=== PATIENT | female | born 1970 | race Caucasian/White ===

== ENCOUNTER 2017-02-04 09:16 | Emergency (ER) | payer OTHER ==
[2017-02-04] MEDS ORDERED: ONDANSETRON 4 MG/2 ML VIAL IVP STA (10:51)
[2017-02-04] MEDS ORDERED: fentaNYL 100 MCG/2 ML VIAL IVP STA (10:51)
[2017-02-04] MEDS ORDERED: KETOROLAC 60 MG/2 ML VIAL IVP STA (10:51)
[2017-02-04] MEDS ORDERED: SODIUM CHLORIDE 0.9% 1,000 ML IV ONE (10:51)
[2017-02-04] MEDS ORDERED: fentaNYL 100 MCG/2 ML VIAL ONE (11:00)
[2017-02-04] MEDS ORDERED: ONDANSETRON 4 MG/2 ML VIAL ONE (11:01)
[2017-02-04] MEDS ORDERED: KETOROLAC 30 MG/ML VIAL ONE (11:01)
[2017-02-04] MEDS ORDERED: diphenhydrAMINE INJ 50 MG/ML VIAL ONE (11:11)
[2017-02-04] MEDS ORDERED: diphenhydrAMINE INJ 50 MG/ML VIAL IVP STA (11:20)
[2017-02-04] MEDS ORDERED: TAMSULOSIN 0.4 MG CAPSULE PO STA (12:51)
[2017-02-04] MEDS ORDERED: HYDROmorphone 1 MG/ML SYRINGE IVP STA (12:51)
[2017-02-04] MEDS ORDERED: TAMSULOSIN 0.4 MG CAPSULE ONE (13:05)
[2017-02-04] MEDS ORDERED: HYDROmorphone 1 MG/ML SYRINGE ONE (13:05)
== END 2017-02-04 13:50 | disposition home or self-care (01) ==
DX: N13.2 Hydronephrosis with renal and ureteral calculous obstruction (principal); R30.0 Dysuria; F17.200 Nicotine dependence, unspecified, uncomplicated
CPT/HCPCS: 51798; 74176; 80053; 81001; 81025; 83690; 85025; 96374; 96375; 99283; 99284; A9270; J1170

== ENCOUNTER 2019-07-20 07:51 | Emergency (ER) | payer OTHER ==
[2019-07-20 08:27] LABS: BILIRUBIN,URINE NEGATIVE (NEGATIVE); GLUCOSE, URINE (UA) NEGATIVE (NEGATIVE); KETONES,URINE (UA) NEGATIVE (NEGATIVE); LEUKOCYTE ESTERASE, URINE NEGATIVE (NEGATIVE); NITRITE,URINE NEGATIVE (NEGATIVE); OCCULT BLOOD,URINE MODERATE (NEGATIVE); PROTEIN,URINE NEGATIVE (NEGATIVE); UROBILINOGEN,URINE 0.2 (NORMAL) E.U./dL (NORMAL)
[2019-07-20 08:28] LABS: CLARITY,URINE CLEAR (CLEAR)
[2019-07-20 08:36] LABS: BACTERIA,URINE None Seen /HPF (None Seen); SQUAMOUS EPITHELIAL CELL,UR RARE Squamous (<= Few)
[2019-07-20 08:37] LABS: ALBUMIN 4.1 g/dL (3.2-5.5); ALBUMIN/GLOBULIN RATIO 1.1 (1.0-2.2); BASOPHILS # (AUTO) 0.1 10^3/uL (0.0-0.1); BASOPHILS % (AUTO) 1.5 %; BILIRUBIN,TOTAL 0.4 mg/dL (0.2-1.0); CALCIUM 9.2 mg/dL (8.5-10.3); CREATININE 0.9 mg/dL (0.4-1.0); EOSINOPHILS # (AUTO) 0.4 10^3/uL (0.0-0.7); HGB - HEMOGLOBIN 11.5 g/dL (12.0-16.0); LYMPHOCYTES # (AUTO) 2.1 10^3/uL (1.5-3.5); LYMPHOCYTES % (AUTO) 27.8 %; MEAN CORPUSCULAR HEMOGLOBIN 27.1 pg (27.0-31.0); MEAN CORPUSCULAR HGB CONC 30.3 g/dL (32.0-36.0); MEAN CORPUSCULAR VOLUME 89.4 fL (81.0-99.0); MEAN PLATELET VOLUME 10.3 fL (7.9-10.8); MONOCYTES # (AUTO) 0.5 10^3/uL (0.0-1.0); MONOCYTES % (AUTO) 6.9 %; NEUTROPHILS # (AUTO) 4.4 10^3/uL (1.5-6.6); NEUTROPHILS % (AUTO) 58.4 %; PLT - PLATELET COUNT 337 10^3/uL (130-450); RED BLOOD COUNT 4.25 10^6/uL (4.20-5.40); RED CELL DISTRIBUTION WIDTH 13.9 % (12.0-15.0); TOTAL PROTEIN 7.7 g/dL (6.7-8.2); WHITE BLOOD COUNT 7.6 x10^3/uL (4.8-10.8)
[2019-07-20] MEDS ORDERED: HYDROmorphone 1 MG/ML CARPUJECT IVP STA (08:41)
--- NOTE | 2019-07-20 09:00 | ED Physician Documentation ---
PD HPI ABD PAIN - Stated complaint Stated Complaint: BACK PX - Chief complaint Chief Complaint: Abd Pain - History obtained from History obtained from: Patient - History of Present Illness Timing - onset: Yesterday Timing - duration: Days (1) Timing - details: Abrupt onset Severity Comments: moderate Quality: Sharp, Pain, Other Location: Other (Left flank and back radiating to her Left groin) Radiation: , Left flank Improved by: Other (nothing) Worsened by: Other (nothing) Associated symptoms: Other (she does report vaginal irritation). No: Fever, Nausea, Vomiting, Hematemesis, Diarrhea, Constipation, Melena, Hematochezia, Dysuria, Hematuria, Chest pain, Dizzy, Loss of appetite, Vaginal bleeding, Vaginal dc Similar symptoms before: Diagnosis (has a hx of kidney stones) Recently seen: Not recently seen - Treatment prior to arrival Treatment prior to arrival: took 2 naproxen at 4am Review of Systems Ten Systems: 10 systems reviewed and negative Constitutional: denies: Fever Cardiac: denies: Chest pain / pressure GI: reports: Abdominal Pain. 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 - Present Medications Home Medications: Ambulatory Orders Medication Instructions Recorded Confirmed Hydrocodone/Acetaminophen [[place] 1 each PO Q6H PRN #20 tablet 02/04/17 5-325 Tablet] Naproxen [Naprosyn] 500 mg PO BID #15 tablet 02/04/17 Ondansetron HCl [Zofran] 4 mg PO Q6H PRN #20 tablet 02/04/17 Tamsulosin [Flomax] 0.4 mg PO DAILY #5 capsule 02/04/17 Hydrocodone/Acetaminophen 1 - 2 each PO Q6H PRN #14 tablet 07/20/19 [Hydrocodon-Acetaminophen 5-325] Ondansetron Odt [Zofran] 4 mg TL Q6H PRN #10 tablet 07/20/19 - Allergies Allergies/Adverse Reactions: Allergies Allergy/AdvReac Type Severity Reaction Status Date / Time codeine Allergy Rash Verified 07/20/19 08:00 morphine AdvReac Headache Verified 07/20/19 08:00 - Social History Does the pt smoke?: Yes Smoking Status: Current every day smoker Does the pt drink ETOH?: No Does the pt have substance abuse?: No - Immunizations Immunizations are current?: Yes PD ED PE NORMAL - Vitals Vital signs reviewed: Yes - General General: Alert and oriented X 3, No acute distress - HEENT HEENT: Atraumatic, Moist mucous membranes, Pharynx benign - Neck Neck: Supple, no meningeal sign - Cardiac Cardiac: RRR - Respiratory Respiratory: No respiratory distress - Abdomen Abdomen: Soft, Non tender, Non distended - Female Female : Deferred - Rectal Rectal: Deferred - Derm Derm: Normal color, Warm and dry, No rash - Extremities Extremities: No edema - Neuro Neuro: Alert and oriented X 3 Eye Opening: Spontaneous Motor: Obeys Commands Verbal: Oriented GCS Score: 15 - Psych Psych: Normal mood, Normal affect Results - Vitals Vitals: Vital Signs - 24 hr 07/20/19 07/20/19 07/20/19 07:57 10:28 11:25 Temperature 36.4 C L 36 C L Heart Rate 69 60 59 L Respiratory 16 18 20 Rate Blood Pressure 126/75 111/59 L 113/75 O2 Saturation 100 99 100 Oxygen O2 Source Room air - Labs Labs: Laboratory Tests 07/20/19 07/20/19 07/20/19 08:19 08:19 08:19 WBC 7.6 RBC 4.25 Hgb 11.5 L Hct 38.0 MCV 89.4 MCH 27.1 MCHC 30.3 L RDW 13.9 Plt Count 337 MPV 10.3 Neut # (Auto) 4.4 Lymph # (Auto) 2.1 Towns # (Auto) 0.5 Eos # (Auto) 0.4 Baso # (Auto) 0.1 Absolute Nucleated RBC 0.00 Nucleated RBC % 0.0 Sodium 141 Potassium 3.9 Chloride 106 Carbon Dioxide 27 Anion Gap 8.0 BUN 14 Creatinine 0.9 Estimated GFR (MDRD) 67 L Glucose 111 H Calcium 9.2 Total Bilirubin 0.4 AST 20 ALT 27 Alkaline Phosphatase 53 Total Protein 7.7 Albumin 4.1 Globulin 3.6 Albumin/Globulin Ratio 1.1 Lipase 29 Urine Color YELLOW Urine Clarity CLEAR Urine pH 7.0 Ur Specific [place] 1.010 Urine Protein NEGATIVE Urine Glucose (UA) NEGATIVE Urine Ketones NEGATIVE Urine Occult Blood MODERATE H Urine Nitrite NEGATIVE Urine Bilirubin NEGATIVE Urine Urobilinogen 0.2 (NORMAL) Ur Leukocyte Esterase NEGATIVE Urine RBC 6-10 H Urine WBC 0-3 Ur Squamous Epith Cells RARE Squamous Urine Bacteria None Seen Ur Microscopic Review INDICATED Urine Culture Comments NOT INDICATED Urine HCG, Qual 07/20/19 08:20 WBC RBC Hgb Hct MCV MCH MCHC RDW Plt Count MPV Neut # (Auto) Lymph # (Auto) Towns # (Auto) Eos # (Auto) Baso # (Auto) Absolute Nucleated RBC Nucleated RBC % Sodium Potassium Chloride Carbon Dioxide Anion Gap BUN Creatinine Estimated GFR (MDRD) Glucose Calcium Total Bilirubin AST ALT Alkaline Phosphatase Total Protein Albumin Globulin Albumin/Globulin Ratio Lipase Urine Color Urine Clarity Urine pH Ur Specific [place] 1.010 Urine Protein Urine Glucose (UA) Urine Ketones Urine Occult Blood Urine Nitrite Urine Bilirubin Urine Urobilinogen Ur Leukocyte Esterase Urine RBC Urine WBC Ur Squamous Epith Cells Urine Bacteria Ur Microscopic Review Urine Culture Comments Urine HCG, Qual NEGATIVE PD MEDICAL DECISION MAKING - ED course Complexity details: reviewed results, re-evaluated patient, considered differential, d/w patient, d/w family ED course: ddx - UTI, pyelonephritis, kidney stone, AAA 49 y/o F with L flank pain, radiating to groin, stable vitals, blood in urine, most likely a kidney stone but borderline Aorta size on bedside US though this is limited study based on body habitus and lack of an abdominal probe thus obtained a CT. UA is not infected CT confirms a 3mm nonobstructing kidney stone and aorta is of normal size. Thus will continue supportive care with analgesics, antiemetics and outpt f/u Given return precautions if worsening symptoms or new concerning symptoms such as fever. Departure - Departure Disposition: 01 Home, Self Care Clinical Impression: Kidney stone on left side Condition: Stable Instructions: Kidney Stones Follow-Up: your, doctor [Other] - Within 1 week (recheck your symptoms ) Prescriptions: Hydrocodone/Acetaminophen [Hydrocodon-Acetaminophen 5-325] 1 - 2 each PO Q6H PRN #14 tablet PRN Reason: pain Ondansetron Odt [Zofran] 4 mg TL Q6H PRN #10 tablet PRN Reason: Nausea / Vomiting Comments: You have a 3 mm kidney stone in your Left distal ureter. This should pass on its own. If you have fever or severe worsening pain not improving with NSAIDs or vicodin return to the ED. Take zofran as needed for nausea. Discharge Date/Time: 07/20/19 11:32
[2019-07-20] MEDS ORDERED: IOVERSOL 320 100 ML VIAL IVP ONE ×2 (09:41→09:59)
[2019-07-20 09:42] LABS: HCG UR QUAL NEGATIVE
--- NOTE | 2019-07-20 11:01 | CT Report ---
Reason: L flank pain, 4cm aorta on US, AAA vs stone Procedure Date: 07/20/2019 Accession Number: [id number] / [id number] Procedure: CT - Abdomen/Pelvis W CPT Code: FULL RESULT: EXAM: CT ABDOMEN AND PELVIS EXAM DATE: 07/20/2019 09:58 AM. CLINICAL HISTORY: L flank pain, 4cm aorta on US, AAA vs stone. COMPARISONS: KUB 02/04/2017 11:16 AM. TECHNIQUE: Routine helical CT imaging was performed through the abdomen and pelvis. IV contrast: 90 cc Optiray 320. Enteric contrast: No. Reconstructions: Coronal and sagittal. In accordance with CT protocol optimization, one or more of the following dose reduction techniques were utilized for this exam: automated exposure control, adjustment of mA and/or KV based on patient size, or use of iterative reconstructive technique. FINDINGS: Lung Bases: Unremarkable. Liver: Normal. No masses. Gallbladder/Bile Ducts: The gallbladder is surgically absent. No biliary dilatation. Spleen: Normal. Pancreas: Normal. Adrenal Glands: Normal. Kidneys: Normal. No masses or hydronephrosis. No renal collecting system calculi identified. Peritoneal Cavity/Bowel: Normal. No free fluid, free air or adenopathy. No masses or acute inflammatory process. No dilated loops of bowel or abnormal colonic stool burden. The appendix is not visualized, but there is no inflammatory change or fluid adjacent to the cecum to suggest acute appendicitis. Pelvic Organs: There is a 3 mm calculus in the expected location of the distal left ureter (series 3 image 79, and series 5 image 30). No ureteral dilatation. The bladder is decompressed. No bladder calculi identified. There are several small phleboliths in the pelvis. There is a left ovarian cyst measuring 2.0 x 1.7 cm (series 3 image 73). The other visualized pelvic organs are within normal limits. Vasculature: No aneurysms or other significant abnormality. The abdominal aorta diameter measures up to 2.0 cm in the upper abdomen and 1.5 cm in the infrarenal abdominal aorta. Bones: No significant abnormality. Other: None. IMPRESSION: 1. There is a 3 mm calculus in the expected location of the distal left ureter. However, there is no left-sided hydroureter or hydronephrosis. 2. No right-sided hydronephrosis, hydroureter, or renal collecting system calculi identified. 3. No abdominal aortic aneurysm. 4. The gallbladder is surgically absent. RADIA
[2019-07-20 11:26] VITALS: BP 113/75
== END 2019-07-20 11:32 | disposition home or self-care (01) ==
LOC: ED 07:51
DX: N20.1 Calculus of ureter (principal); Z87.442 Personal history of urinary calculi; F17.200 Nicotine dependence, unspecified, uncomplicated
CPT/HCPCS: 36415; 74177; 80053; 81001; 81025; 83690; 85025; 96374; 99284; J1170; Q9967; 81003; 87086

== ENCOUNTER 2019-07-21 10:11 | Emergency (ER) | payer OTHER ==
[2019-07-21 10:18] VITALS: BP 138/82
== END 2019-07-21 10:50 | disposition left against medical advice (07) ==
LOC: ED 10:11
DX: Z53.21 Procedure and treatment not carried out due to patient leaving prior to being seen by health care provider (principal)

== ENCOUNTER 2020-03-08 14:22 | Outpatient (CLI) | payer OTHER ==
--- NOTE | 2020-03-08 16:52 | Ultrasound Report ---
Reason: KIDNEY STONES W/URINARY RETENTION AND KIDNEY INFEC Procedure Date: 03/08/2020 Accession Number: [id number] / [id number] Procedure: US - Retroperitoneal CPT Code: Final Report FULL RESULT: PROCEDURE: Retroperitoneal INDICATIONS: KIDNEY STONES W/URINARY RETENTION AND KIDNEY INFEC TECHNIQUE: Real-time scanning was performed of the retroperitoneal organs, with image documentation. COMPARISON: CT abdomen pelvis 07/20/2019, Ultrasound Abdomen Limited 08/17/2015. FINDINGS: Kidneys: Kidneys are normal in size. Right kidney measures 12.1 cm long; left kidney measures 11.5 cm long. Right renal cortical thickness is 1.1 cm; left renal cortical thickness is 1.0 cm. No solid masses or nephrolithiasis. Bilateral pelvic caliectasis is present. Hypoechoic focus is noted within the right kidney measuring 12 x 11 x 10 mm in the upper pole. Pancreas: Visualized portions of the pancreas are sonographically normal. Aorta: Visualized aorta is normal in caliber at 3 cm or less. Iliac arteries: Proximal common iliac arteries are normal in caliber at 2.5 cm or less. IVC: Intrahepatic inferior vena cava is patent. Miscellaneous: No free abdominal fluid. Bladder demonstrates a prevoid volume of 229 cc. Post void residual 21 cc. Bilateral ureteral jets are identified. IMPRESSION: 1. No renal or ureteral calculi are identified. 2. Minimal pelvocaliectasis is noted bilaterally. Reviewed by: Niyah Barajas MD on 03/08/2020 4:47 PM PDT Approved by: Niyah Barajas MD on 03/08/2020 4:47 PM PDT Station ID: [id number]
== END 2020-03-08 14:23 | disposition home or self-care (01) ==
LOC: DI 14:22
PROVIDERS: ATTEND Physician Assistant
DX: R10.9 Unspecified abdominal pain (principal); N13.30 Unspecified hydronephrosis; Z87.442 Personal history of urinary calculi
CPT/HCPCS: 76770

== ENCOUNTER 2022-01-31 08:10 | Emergency (ER) | payer OTHER ==
--- NOTE | 2022-01-31 08:18 | ED Physician Documentation ---
PD HPI ABD PAIN - Stated complaint Stated Complaint: RT SIDE PX - History obtained from History obtained from: Patient - History of Present Illness Timing - onset: How many days ago (few) Timing - duration: Days (few) Timing - details: Gradual onset (was mild for couple days, and then increased to 7/10 last night/today.), Still present Quality: Cramping, Aching, Pain Location: RLQ Radiation: Right flank Improved by: No: Eating, Laying still, Position Worsened by: No: Eating, Moving, Breathing, Palpation Associated symptoms: Nausea. No: Fever, Vomiting, Diarrhea, Constipation, Dysuria, Hematuria, Vaginal bleeding, Vaginal dc Similar symptoms before: Diagnosis (feels similar to couple prior kidney stones in ureters several years ago.) Recently seen: Not recently seen Review of Systems Constitutional: denies: Fever, Chills Nose: denies: Rhinorrhea / runny nose, Congestion Throat: denies: Sore throat Respiratory: denies: Cough GI: reports: Abdominal Pain, Nausea. denies: Vomiting, Constipation, Diarrhea : denies: Dysuria, Frequency, Discharge Skin: denies: Rash Neurologic: reports: Generalized weakness. 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 - Present Medications Home Medications: Ambulatory Orders Medication Instructions Recorded Confirmed Escitalopram Oxalate [Lexapro] 20 mg PO DAILY 01/31/22 01/31/22 HYDROcod/ACETAM 5/325 [[place] 5/325] 1 ea PO Q6H PRN #14 tablet 01/31/22 Naproxen 250 mg PO TID 7 Days #20 tablet 01/31/22 Promethazine [Phenergan] 25 mg PO Q6H PRN #15 tab 01/31/22 - Allergies Allergies/Adverse Reactions: Allergies Allergy/AdvReac Type Severity Reaction Status Date / Time codeine Allergy Rash Verified 01/31/22 08:19 ketorolac [From Toradol] Allergy Rash Verified 01/31/22 08:20 morphine AdvReac Headache Verified 01/31/22 08:19 ondansetron AdvReac Emesis Verified 01/31/22 08:20 - Social History Does the pt smoke?: Yes Smoking Status: Current every day smoker Does the pt drink ETOH?: No Does the pt have substance abuse?: No - Immunizations Immunizations are current?: Yes PD ED PE NORMAL - Vitals Vital signs reviewed: Yes - General General: Alert and oriented X 3, Well developed/nourished, Other (appears in pain due to RLQ?flank pain. ) - Neck Neck: Supple, no meningeal sign, No adenopathy - Cardiac Cardiac: RRR, No murmur - Respiratory Respiratory: Clear bilaterally - Abdomen Abdomen: Normal bowel sounds, Soft, Non distended, No organomegaly, Other (some tender RLQ but no guarding nor percussion tenderness. No skin sores/rash/skin tenderness. ) - Female Female : Deferred - Rectal Rectal: Deferred - Back Back: Other (right CVA tender to percussion mildly) - Derm Derm: Normal color, Warm and dry, No rash - Extremities Extremities: Normal ROM s pain, No edema, No calf tenderness / cord - Neuro Neuro: Alert and oriented X 3, No motor deficit, Normal speech Results - Vitals Vitals: Vital Signs - 24 hr 01/31/22 01/31/22 08:15 10:23 Temperature 36.8 C Heart Rate 80 59 L Respiratory 19 18 Rate Blood Pressure 135/109 H 115/43 L O2 Saturation 97 98 Oxygen O2 Source Room air - Labs Labs: Laboratory Tests 01/31/22 01/31/22 08:35 09:00 Sodium 138 Potassium 4.0 Chloride 103 Carbon Dioxide 25 Anion Gap 10.0 BUN 17 Creatinine 0.9 Estimated GFR (MDRD) 66 L Glucose 104 H Calcium 9.1 Total Bilirubin 0.5 AST 26 ALT 37 Alkaline Phosphatase 62 Total Protein 7.3 Albumin 4.1 Globulin 3.2 Albumin/Globulin Ratio 1.3 Lipase 35 Urine Color YELLOW Urine Clarity CLEAR Urine pH 7.0 Ur Specific [place] 1.020 Urine Protein NEGATIVE Urine Glucose (UA) NEGATIVE Urine Ketones TRACE Urine Occult Blood TRACE-INTA Urine Nitrite NEGATIVE Urine Bilirubin NEGATIVE Urine Urobilinogen 0.2 (NORMAL) Ur Leukocyte Esterase NEGATIVE Ur Microscopic Review NOT INDICATED Urine Culture Comments NOT INDICATED - Rads (name of study) KUB CT Radiology: Prelim report reviewed (no hydronephrosis. No ureteral stones. Normal appendix. No acute process. ), EMP read contemporaneously (no hydronephrosis. it appears to me a 4 mm stone right distal ureter almost to the bladder. ), See rad report PD MEDICAL DECISION MAKING - ED course Complexity details: reviewed results (no clear diagnosis. I thought a distal ureteral stone on CT, but Radiology report did not feel ureteral stone. No other explanation on pain at this time. ), considered differential, d/w patient Departure - Departure Disposition: 01 Home, Self Care Clinical Impression: Right sided abdominal pain, Renal colic Condition: Stable Record reviewed to determine appropriate education?: Yes Instructions: ED Stone Renal W Colic Prescriptions: Naproxen 250 mg PO TID 7 Days #20 tablet HYDROcod/ACETAM 5/325 [[place] 5/325] 1 ea PO Q6H PRN #14 tablet PRN Reason: Pain Promethazine [Phenergan] 25 mg PO Q6H PRN #15 tab PRN Reason: Nausea / Vomiting Comments: I believe there may be a small stone at the end of the ureter almost to the bladder on your CT scan. The radiology report did not feel that that was a stone. However no other abnormality noted on your scan or test. We can treat this with anti-inflammatories of naproxen 3 times daily with food. To that add Tylenol every 4-6 hours if needed for pain. Additionally could add hydrocodone every 4-6 hours if needed and Phenergan for nausea. The Phenergan would also act as a bit of an antihistamine to help with any side effect from the pain medicines. Recheck if not improved over the next several days. Return if worsening or other symptoms develop. [facility] [place]. I am prescribing a short course of narcotic pain medication for you. These are potentially dangerous and addictive medications that should be used carefully. These medications may constipate you. Take an [id number]-res-[id number] stool softener such as docusate twice daily with plenty of water while taking these medica tions. If you go 24 hours without a bowel movement, take [id number] MiraLAX, per package instructions. Do not drink or drive while taking these medications. If you received narcotic or sedating medications while in the emergency department do not drive for 24 hours. Store this medication in a safe, secure place and out of reach of children. It is a violation of federal law to give or sell this medication to another person or to use in a manner other than prescribed. The ED will not refill narcotic prescriptions, including prescriptions lost or stolen. You can dispose of unwanted medications at the Technology Director's office or at several pharmacies such as [facility]. Discharge Date/Time: 01/31/22 11:01
[2022-01-31] MEDS ORDERED: fentaNYL 100 MCG/2 ML VIAL IVP STA (08:36)
[2022-01-31] MEDS ORDERED: DROPERIDOL 5 MG/2 ML VIAL IVP STA (08:36)
[2022-01-31] MEDS ORDERED: LIDOCAINE-MPF 2% 0 ML in SODIUM CHLORIDE 0.9% 50 ML IV STA (08:36)
[2022-01-31] MEDS ORDERED: SODIUM CHLORIDE 0.9% 1,000 ML IV STA (08:36)
[2022-01-31] MEDS ORDERED: LIDOCAINE-MPF 2% 8 ML in SODIUM CHLORIDE 0.9% 50 ML IV STA (08:38)
[2022-01-31 08:45] LABS: BILIRUBIN,URINE NEGATIVE (NEGATIVE); GLUCOSE, URINE (UA) NEGATIVE (NEGATIVE); KETONES,URINE (UA) TRACE mg/dL (NEGATIVE); LEUKOCYTE ESTERASE, URINE NEGATIVE (NEGATIVE); NITRITE,URINE NEGATIVE (NEGATIVE); OCCULT BLOOD,URINE TRACE-INTA (NEGATIVE); PROTEIN,URINE NEGATIVE (NEGATIVE); UROBILINOGEN,URINE 0.2 (NORMAL) E.U./dL (NORMAL)
[2022-01-31 08:47] LABS: CLARITY,URINE CLEAR (CLEAR)
[2022-01-31 09:18] LABS: ALBUMIN 4.1 g/dL (3.2-5.5); ALBUMIN/GLOBULIN RATIO 1.3 (1.0-2.2); BILIRUBIN,TOTAL 0.5 mg/dL (0.2-1.0); CALCIUM 9.1 mg/dL (8.5-10.3); CREATININE 0.9 mg/dL (0.4-1.0); TOTAL PROTEIN 7.3 g/dL (6.7-8.2)
--- NOTE | 2022-01-31 10:02 | CT Report ---
PROCEDURE: Abdomen/Pelvis WO INDICATIONS: right flank/abd pain TECHNIQUE: Noncontrast 5 mm thick sections acquired from the diaphragms to the symphysis. 5 mm coronal and sagi ttal reformats were then performed. For radiation dose reduction, the following was used: automated exposure control, adjustment of mA and/or kV according to patient size. COMPARISON: None. FINDINGS: Image quality: Excellent. ABDOMEN: Lung bases: Lung bases are clear. Heart size is normal. Urinary tract: Punctate nonobstructing left renal calculus measuring 1 mm (series 3 image 27). No add itional urinary tract calculus. Normal unenhanced CT appearance of the kidneys and urinary bladder. Other solid organs: Cholecystectomy. Normal unenhanced CT appearance of the liver, spleen, pancreas, and adrenal glands. Peritoneum and bowel: No abnormally dilated or thickened loops of bowel. No pericolonic or mesenteric inflammatory changes. Sigmoid diverticulosis. Nodes and vessels: No threshold enlarged retroperitoneal or intra-abdominal lymph node. Miscellaneous: No ventral hernias. PELVIS: Genitourinary: Unremarkable enhanced appearance of the uterus and ovaries. Miscellaneous: No surgical unremarkable inguinal lymph node. Bones: No suspicious bony lesions. No vertebral body compression fractures. IMPRESSION: Nonobstructing 1 mm left renal calculus. No findings of hydroureteronephrosis. Reviewed by: David Salgado MD on 01/31/2022 10:00 AM PDT Approved by: David Salgado MD on 01/31/2022 10:00 AM PDT Station ID: [id number]
[2022-01-31 10:29] VITALS: BP 115/43
== END 2022-01-31 11:01 | disposition home or self-care (01) ==
LOC: ED 08:10
DX: N23 Unspecified renal colic (principal); F17.200 Nicotine dependence, unspecified, uncomplicated
CPT/HCPCS: 36415; 74176; 80053; 81003; 83690; 96361; 96374; 96375; 99282; 99284; J7040; 81001; 87086

== ENCOUNTER 2023-02-08 12:39 | Outpatient (CLI) | payer OTHER ==
--- NOTE | 2023-02-09 10:22 | XRAY Report ---
PROCEDURE: Thoracic Spine 2 View INDICATIONS: CHRONIC THORACIC BACK PAIN TECHNIQUE: 2 views of the thoracic spine were acquired. COMPARISON: None. FINDINGS: Bones: No fractures or dislocations. No suspicious bony lesions. Mild degenerative disc disease sca ttered in thoracic spine. 12 pairs of ribs are noted, and appear intact where visualized. Soft tissues: No paravertebral stripe thickening. IMPRESSION: Mild degenerative disc disease. Reviewed by: Gem Finnegan MD on 02/09/2023 10:21 AM PDT Approved by: Gem Finnegan MD on 02/09/2023 10:21 AM PDT Station ID: [id number]
== END 2023-02-08 12:40 | disposition home or self-care (01) ==
LOC: DI 12:39
PROVIDERS: ATTEND Physician Assistant
DX: M51.34 Other intervertebral disc degeneration, thoracic region (principal)

== ENCOUNTER 2023-08-29 10:18 | Outpatient (CLI) | payer OTHER ==
[2023-08-29 10:46] LABS: ALBUMIN 4.5 g/dL (3.2-5.5); CHOLESTEROL 237 mg/dL; HDL CHOLESTEROL 47 mg/dL; LDL CHOLESTEROL,CALCULATED 143 mg/dL; TRIGLYCERIDES 235 mg/dL (48-352); VLDL CHOLESTEROL 47 mg/dL
[2023-08-29 10:57] LABS: ALBUMIN/GLOBULIN RATIO 1.7 (1.0-2.2); ALKALINE PHOSPHATASE 75 IU/L (42-121); ALT ALANINE AMINOTRANSFERASE 47 IU/L (10-60); AST ASPARTATE AMINOTRANSFERASE 29 IU/L (10-42); BILIRUBIN,TOTAL 0.4 mg/dL (0.2-1.0); BUN - BLOOD UREA NITROGEN 16 mg/dL (6-20); CALCIUM 9.8 mg/dL (8.5-10.3); CARBON DIOXIDE - CO2 26 mmol/L (21-32); CHLORIDE 102 mmol/L (101-111); CREATININE 0.8 mg/dL (0.6-1.3); GFR - MDRD 75 (>89); GLUCOSE 138 mg/dL (74-104); POTASSIUM 4.4 mmol/L (3.5-4.5); SODIUM 136 mmol/L (135-145); TOTAL PROTEIN 7.2 g/dL (6.4-8.9)
== END 2023-08-29 10:19 | disposition home or self-care (01) ==
LOC: LAB 10:18
PROVIDERS: ATTEND Physician Assistant
DX: E78.5 Hyperlipidemia, unspecified (principal)
CPT/HCPCS: 36415; 80053; 80061; 83721

== ENCOUNTER 2023-10-02 06:47 | Outpatient (CLI) | payer OTHER ==
--- NOTE | 2023-10-02 14:27 | Ultrasound Report ---
PROCEDURE: Pelvic w/Transvaginal INDICATIONS: POST MENOPAUSAL BLEEDING TECHNIQUE: Real-time scanning was performed of the pelvic organs, with image documentation. Additional endovagi nal scanning was necessary due to incomplete visualization of the adnexal and endometrial structures by transabdominal scanning. COMPARISON: CT 07/20/2019 FINDINGS: Uterus: 6.2 x 3.8 x 5.4 cm. Retroflexed. Heterogeneous echotexture. Endometrium measures 2 to 3 mm, w ithin normal limits. Ovaries:Nonenlarged. Other: In the urinary bladder, there is an echogenic focus versus soft tissue mass measuring 1.7 x 1. 3 cm. IMPRESSION: Nonthickened endometrium. Incidentally noted possible mass versus echogenic focus in the urinary bladder. If this is soft tissu e, it is suspicious for malignancy. Consider cystoscopy correlation. This was marked as a result to russ alvarez up in PACS. Reviewed by: Yuriy Sorensen MD on 10/02/2023 2:25 PM PST Approved by: Yuriy Sorensen MD on 10/02/2023 2:25 PM PST Station ID: [id number]
== END 2023-10-02 06:48 | disposition home or self-care (01) ==
LOC: DI 06:47
PROVIDERS: ATTEND Registered Nurse
DX: N95.0 Postmenopausal bleeding (principal); R93.89 Abnormal findings on diagnostic imaging of other specified body structures

== ENCOUNTER 2023-12-25 10:00 | Day surgery (SDC) | payer OTHER ==
[2023-12-25] MEDS ORDERED: ceFAZolin 2 GM VIAL ONE (10:05)
--- NOTE | 2023-12-25 10:25 | ANESTHESIA ---
Pre-Anesthesia VS, & Labs - Diagnosis bladder mass - Procedure TURBT Height: 5 ft 9 in Weight (kg): 109.5 kg Body Mass Index: 35.6 BMI Classification: Obese - NPO >8 hours - Is Patient ?: No, Waiver signed - Lab Results Lab results reviewed: Yes Home Medications and Allergies Home Medications: Ambulatory Orders Acetaminophen [Tylenol] 650 mg PO Q6H PRN 12/21/23 Cholecalciferol [Vitamin D3] 25 mcg PO DAILY 12/21/23 Ibuprofen [Motrin] 600 mg PO Q6H PRN 12/21/23 Loratadine [Claritin] 10 mg PO DAILY 12/21/23 Multivitamin 1 each PO DAILY 12/21/23 Escitalopram Oxalate [Lexapro] 20 mg PO DAILY 01/31/22 Acetaminophen [Tylenol] 650 mg PO Q6H PRN 12/21/23 Cholecalciferol [Vitamin D3] 25 mcg PO DAILY 12/21/23 Ibuprofen [Motrin] 600 mg PO Q6H PRN 12/21/23 Loratadine [Claritin] 10 mg PO DAILY 12/21/23 Multivitamin 1 each PO DAILY 12/21/23 Allergies/Adverse Reactions: Allergies Allergy/AdvReac Type Severity Reaction Status Date / Time codeine Allergy Rash Verified 01/31/22 08:19 ketorolac [From Toradol] Allergy Rash Verified 01/31/22 08:20 morphine AdvReac Headache Verified 01/31/22 08:19 ondansetron AdvReac Emesis Verified 01/31/22 08:20 Anes History & Medical History - Anesthetic History Anesthesia Complications: reports: No previous complications Family history of Anesthesia Complications: Denies Family history of Malignant Hyperthermia: Denies - Medical History Cardiovascular: reports: High cholesterol Pulmonary: reports: None Gastrointestinal: reports: None Urinary: reports: Kidney stones Musculoskeletal: reports: Osteoarthritis, Chronic back pain Endocrine/Autoimmune: reports: None Skin: reports: None Smoking Status: Current every day smoker - Surgical History General: reports: Cholecystectomy, Appendectomy Urologic: reports: Ureterolithotomy (stones) Gynecologic: reports: Dilation and currettage Exam General: Alert, Oriented x3, Cooperative Dental: WNL, Other Mouth Openin Fingerbreadth Neck Mobility: Normal Mallampati classification: II Thyromental Distance: 4-6 cm Respiratory: Lungs clear, Normal breath sounds, No respiratory distress Cardiovascular: Regular rate Neurological: Normal speech Mental/Cognitive Status: Alert/Oriented X3, Normal for patient Cognitive Status: Within normal limits Plan Anesthesia Type: General Consent for Procedure(s) Verified and Reviewed: Yes Code Status: Attempt Resuscitation ASA classification: 2-Mild systemic disease Is this case an emergency?: No
[2023-12-25] MEDS: LACTATED RINGERS 1,000 ML IV ONE (10:30)
[2023-12-25] MEDS ORDERED: ONDANSETRON 4 MG/2 ML VIAL IVP PRN ×2 (10:32→11:36)
[2023-12-25] MEDS ORDERED: fentaNYL 100 MCG/2 ML VIAL IVP PRN (10:32)
[2023-12-25] MEDS ORDERED: NALOXONE 0.4 MG/ML VIAL IVP PRN (10:32)
[2023-12-25] MEDS ORDERED: METOCLOPRAMIDE 10 MG/2 ML VIAL IVP PRN (10:32)
[2023-12-25] MEDS ORDERED: MORPHINE 2 MG/ML CARPUJECT IVP PRN (10:32)
[2023-12-25] MEDS ORDERED: ATROPINE ABBOJECT 1 MG/10 ML SYRINGE IVP PRN (10:32)
[2023-12-25] MEDS ORDERED: HYDROmorphone 0.5 MG/0.5 ML SYRINGE IVP PRN (10:32)
[2023-12-25] MEDS ORDERED: ePHEDrine 50 MG/ML VIAL IVP PRN (10:32)
[2023-12-25] MEDS ORDERED: PROPOFOL 200 MG/20 ML VIAL IVP ONE (10:45)
[2023-12-25] MEDS ORDERED: fentaNYL 100 MCG/2 ML VIAL ONE (10:45)
[2023-12-25] MEDS ORDERED: MIDAZOLAM 2 MG/2 ML VIAL ONE (10:45)
[2023-12-25] MEDS ORDERED: LIDOCAINE-PF 2% 10 ML AMP SUBQ ONE (10:45)
[2023-12-25] MEDS ORDERED: LACTATED RINGERS 1,000 ML IV SCH (11:00)
[2023-12-25] MEDS ORDERED: LIDOCAINE 2% URO-JET 5 ML SYRINGE UR ONE (11:01)
[2023-12-25] MEDS ORDERED: DEXAMETHASONE 4 MG/ML VIAL ONE (11:16)
[2023-12-25] MEDS: LACTATED RINGERS 700 ML IV ONE (11:38)
[2023-12-25] MEDS: LIDOCAINE 2% URO-JET 5 ML SYRINGE UR ONE (11:41)
--- NOTE | 2023-12-25 11:43 | Discharge Plan ---
Discharge Plan Problem Reviewed?: Yes Disposition: Home, Self Care Condition: Good Prescriptions: Docusate Sodium 100Mg Capsule [Colace 100Mg Capsule] 100 mg PO DAILY #7 cap traMADol [Ultram] 50 mg PO Q6H PRN #6 tablet PRN Reason: Pain >8 Diet: Regular Activity Restrictions: Additional Comments (as instructed) Shower Restrictions: No Driving Restrictions: Yes (no driving when taking pain medications) Instruction Topics: Transureth Bladder Tumor Resect Dc Additional Instructions or Follow Up instructions: You have an appointment to see Dr. Salazar on January 03 at 8:45 AM. Please arrive 10 minutes early No Smoking: If you smoke, Please STOP! Call for help. Follow-up with: Garrett Salazar MD [Provider Admit Priv/Credential] -
--- NOTE | 2023-12-25 11:45 | OPERATIVE REPORT ---
Operative Report - General Procedure Date: 12/25/23 Planned Procedure: Transurethral resection of bladder tumor Pre-Op Diagnosis: Bladder mass Procedure Performed: Transurethral resection of bladder tumor 1.5cm in size Post Op Diagnosis: Bladder mass - Procedure Note Primary Surgeon: Martin Anesthesia Provider: ÁNGELA Ng Anesthesia Technique: General LMA Pathology: bladder mass Estimated Blood Loss (mL): 0 Findings: 1.5cm papillary bladder mass just lateral to left UO Complications: none - Other Other Information/Narrative: After informed consent was obtained the patient was brought to the OR and laid in the supine position. The patient was anesthetized per anesthesia protocols and prepped and draped in the usual sterile fashion in the dorsolithotomy position. A formal timeout was performed reconfirming the patient and procedure. A 26 Czech resectoscope was advanced easily into urinary bladder. The bladder inspected and full and there was a 1.5 cm papillary mass just lateral to the left ureteral orifice. There were no other masses or lesions or other concerns. Using loop electrocautery and the bipolar setting we resected this mass in its entirety. We did not go significantly deep as there was concerned that it was overlying the pathway of the ureter. The specimen was evacuated and sent for analysis. Spot cautery was used for hemostasis. Hemostasis was excellent. The bladder was emptied and filled multiple times confirming good hemostasis. A Uro-Jet was placed. This included the procedure the patient tolerated the procedure well. She will follow-up in 1 week's time for pathology discussion
[2023-12-25] MEDS ORDERED: HYDROcod/ACETAM 5/325 MG TABLET ONE (12:11)
[2023-12-25] MEDS: HYDROcod/ACETAM 5/325 MG TABLET PO PRN (12:14)
--- NOTE | 2023-12-25 12:51 | ANESTHESIA POST OP EVALUATION ---
Anesthesia Post Eval - Post Anesthesia Eval Vitals: Last Vital Signs Temp 36.4 C L 12/25/23 11:58 Pulse 67 12/25/23 12:16 Resp 18 12/25/23 12:16 BP 123/93 H 12/25/23 12:16 Pulse Ox 97 12/25/23 12:16 O2 Flow Rate CV Function Including HR & BP: Stable Pain Control: Satisfactory Nausea & Vomiting: Negative Mental Status: Baseline Respiratory Status: Airway Patent Hydration Status: Satisfactory Anesthesia Complications: None
[2023-12-25 13:17] VITALS: BP 122/60; O2SAT 98
== END 2023-12-25 10:01 | disposition home or self-care (01) ==
LOC: SDS 10:00
PROVIDERS: ATTEND Urology
PROC: 0TBB8ZZ Excision of Bladder, Via Natural or Artificial Opening Endoscopic (ICD-10-PCS; principal; 2023-12-25 11:00)
DX: C67.6 Malignant neoplasm of ureteric orifice (principal); E66.9 Obesity, unspecified; F17.200 Nicotine dependence, unspecified, uncomplicated; Z68.35 Body mass index [BMI] 35.0-35.9, adult
CPT/HCPCS: 52234; A9270; J7120